=== PATIENT | male | born 1955 | race African-American/Black ===

== ENCOUNTER 2020-06-21 11:44 | Day surgery (SDC) | payer BC ==
[~2020-06-21] VITALS: Ht 167.6 cm; Wt 92.0 kg
--- NOTE | ~2020-06-21 | HEMODYNAMI ---
PATIENT:KATHRYN LOJA MEDICAL RECORD: [id number] : 57 LOCATION:DMarilynCAT ADMISSION DATE: 06/21/20 Generatedon:114:49 Patient name: KATHRYN LOJA Patient #: [id number] SSN: [id number] : 1955 Date of study: 06/21/2020 Page: Of Hemodynamic Procedure Report Patient Data Patient Demographics Procedure consent was obtained First Name: KATHRYN Gender: Male Last Name: PURVI : 1955 Middle Initial: YARITZA Age: 65 year(s) Patient #: [id number] Race: Black SSN: [id number] Additional ID: [id number] Contact details [address]: [address] [place] [address] State: [place] City: [place] Zip code: [address] Admission Admission Data Admission Date: 06/21/2020 Admission Time: 11:44 Arrival Date: 06/21/2020 Arrival Time: 0:00 Admit Source: Other Insurance Payor: Private health insurance [facility] #: [id number] Height (in.): 66 BSA: 2.01 (m2) Height (cm.): 167.64 BMI: 32.74 (kg/m2) Weight (lbs.): 202.83 Weight (kg.): 92 Lab Results Lab Result Date: 06/21/2020 Lab Result Time: 0:00 Biochemistry Name Units Result Min Max BUN mg/dl 18 --(---*)-- 7 18 Creatinine mg/dl 1 --(--*-)-- 0.6 1.3 eGFR ml/min 90 --(*---)-- 90 120 AM CBC Name Units Result Min Max Hematocrit % 43.6 --(*---)-- 42 54 Hemoglobin g/dl 14.5 --(*---)-- 13.5 17.5 Procedure Procedure Types Cath Procedure Diagnostic Procedure C LHC w/Coronaries FFR/IVUS FFR Initial Sedation Charges Moderate Sedation 10-24 minutes PCI Procedure Hemochron ACT Test Procedure Description Procedure Date Procedure Date: 06/21/2020 Procedure Start Time: 14:24 Procedure End Time: 14:45 Procedure Staff Name Function Abhijeet Tolliver MD Performing Physician Ning Farley RT Monitor Candi Campuzano RT Scrub Zachary Pabon RN Nurse Procedure Data Cath Procedure Fluoroscopy Diagnostic fluoroscopy Total fluoroscopy Time: 4.5 time: 4.5 min min Diagnostic fluoroscopy Total fluoroscopy dose: 683 dose: 683 mGy mGy Contrast Material Contrast Material Type Amount (ml) Isovue 300 87 Entry Location Entry Primary Successful Side Size Upsize Upsize Entry Closure Dia ccessful Closure Location (Fr) 1 (Fr) 2 (Fr) Remarks Device Remarks Radial Right 6 Fr Mechanical artery Short Compression Estimated blood loss: 5 ml Diagnostic catheters Device Type Used For End Catheter Placement DIAGNOSTIC Lilburn 110cm 5 Multi-vessel Fr catheter ([id number]) Angiography DIAGNOSTIC AR MOD 5Fr Right Coronary Catheter ([id number]) Angiography Procedure Complications No complications Procedure Medications Medication Administration Route Dosage Oxygen etCO2 Nasal cannula 2 l/min Lidocaine 2% added to field 20 Heparin Flush Bag added to field 2 bags (1000units/500ml NS) 0.9% NaCl I.V. 100 ml/hr Versed I.V. 1 mg Fentanyl I.V. 50 mcg Versed I.V. 1 mg Fentanyl I.V. 50 mcg Versed I.V. 1 mg Heparin Bolus I.V. 3000 units Versed I.V. 1 mg Radial Cocktail I.A. 1 syringe (Verapamil 2mg/Nitro 400mcg/Heparin 1500units) Hemodynamics Rest BSA: 2.01 (m2) HGB: 14.5 (g/dl) O2 Consumption: Estimated: 217.89 (ml/min) O2 Co nsumption indexed: Estimated:108.4 (ml/min/m) Heart Rate: 48 (bpm) Pressure Samples Time Site Value (mmHg) Purpose Heart Use Rate(bpm) 14:28 LV 80/-4,-4 Snapshot 61 14:29 AO 92/53(74) Pullback 59 14:29 LV 122/-2,3 Pullback 59 Gradients Valve Time Site 1 Site 2 Mean SEP/DFP Peak To Heart Use (mmHg) (sec/min) Peak Rate (mmHg) (bpm) Aortic 14:29 LV AO 25 18 30 59 122/-2,3 92/53(74) Calculations Valve P-P Mean Valve Index Valve Source Name Gradient Area Flow (cm2) Aortic 30 25 30 25 Snapshots Pre Cath Intra NCS Post Cath Vital Signs Time Heart Resp SPO2 etCO2 NIBP (mmHg) Rhythm Pain Sedation Rate (ipm) (%) (mmHg) Status Level (bpm) 14:09:43 49 12 100 34.5 202/97(166) SB 0 (11) 10(A) , No pain 14:14:15 48 15 100 39.8 172/90(150) SB 0 (11) 10(A) , No pain 14:19:54 48 10 98 0 162/88(132) NSR 0 (11) 10(A) , No pain 14:25:23 50 20 99 33 164/92(151) NSR 0 (11) 9(A) , No pain 14:29:39 58 14 96 0 128/76(103) NSR 0 (11) 9(A) , No pain 14:33:55 95 13 96 39 147/86(109) NSR 0 (11) 9(A) , No pain 14:38:20 69 11 100 39.8 143/81(125) NSR 0 (11) 10(A) , No pain 14:42:44 62 13 100 35.3 150/82(125) NSR 0 (11) 10(A) , No pain Medications Time Medication Route Dose Verified Delivered Reason Not es Effectiveness by by 14:12:45 Oxygen etCO2 2 l/min Abhijeet Sharma used for Nasal [facility] Pabon RN procedure cannula 14:12:53 Lidocaine 2% added 20ml Abhijeet Jha for local to vial [facility] anesthetic field MD ISRAEL 14:12:58 Heparin Flush added 2 bags Abhijeet Jha used for Bag to [facility] procedure (1000units/500ml field MD ISRAEL NS) 14:13:07 0.9% NaCl I.V. 100 Abhijeet Sharma Per physician ml/hr [facility] Pab[facility] RN, MD 14:13:15 Versed I.V. 1 mg Abhijeet Sharma for sedation [facility] Pab[facility] RN, MD 14:13:21 Fentanyl I.V. 50 mcg Abhijeet Sharma for sedation [facility] Pab[facility] RN, MD 14:16:37 Versed I.V. 1 mg Abhijeet Sharma for sedation [facility] Pabon RN, MD 14:16:41 Fentanyl I.V. 50 mcg Abhijeet Sharma for sedation [facility] Pabon RN, MD 14:26:04 Versed I.V. 1 mg Abhijeet Sharma for sedation [facility] Pabno RN, MD 14:26:15 Radial Cocktail I.A. 1 Abhijeet Jha for (Verapamil syringe [facility] Tolliver vasodilation 2mg/Nitro MD ISRAEL 400mcg/Heparin 1500units) 14:31:35 Versed I.V. 1 mg Abhijeet Sharma for sedation [facility] Pabon RN, MD 14:36:27 Heparin Bolus I.V. 3000 Abhijeet Sharma for van ified units [facility] Pabon RN anticoagulation with dr MD murillo Procedure Log Time Note 13:35:16 Informed consent obtained and on chart 13:35:34 Diagnostic Cath Status : Elective 13:36:14 Lab Result : eGFR AM 90 ml/min 13:36:14 Lab Result : Hemoglobin 14.5 g/dl 13:36:14 Lab Result : BUN 18 mg/dl 13:36:14 Lab Result : Creatinine 1 mg/dl 13:36:14 Lab Result : Hematocrit 43.6 % 13:36:17 Arrival Date: 06/21/2020 12:00:00 AM 13:36:18 Admit Source: Other 13:36:21 Patient Height : 66 inches 13:36:25 Patient Weight : 202.83 lbs 13:36:30 Insurance Payor : Private health insurance 13:48:29 Procedure Status Elective Heart Cath (OP). 13:48:31 Zachary Pabon RN sent for patient. Start room use. 13:48:32 Time tracking: Regular hours (M-F 7:00 - 5:00) 13:48:37 Plan of Care:Hemodynamics will remain stable., Cardiac rhythm will remain stable., Comfort level will be maintained., Respiratory function will remain adequate., Patient/ family verbilizes understanding of procedure., Procedure tolerated without complication., Recovers from procedure without complications.. 14:01:05 Patient received from Pre/Post Procedure Room to CCL 1 Alert and oriented. Tansferred to table in Supine position. 14:01:07 Warm blankets applied, and jenni hugger turned on for patient comfort. 14:01:07 Correct patient and procedure confirmed by team. 14:01:09 ECG and BP/O2 sat monitors applied to patient. 14:06:51 Vital chart was started 14:09:58 Baseline sample Acquired. 14:10:24 Rhythm: sinus bradycardia 14:10:26 Full Disclosure recording started 14:10:32 H&P Date Dictated: 06/21/2020 Within 30 days and on chart., H&P Addendum completed by physician on day of procedure. (MUST COMPLETE FOR ALL OUTPATIENTS). 14:10:33 Pre-procedure instructions explained to patient. 14:10:34 Pre-op teaching completed and patient verbalized understanding. 14:10:35 Family unavailable. 14:10:37 Patient NPO since Midnight. 14:10:40 Is the patient allergic to Iodine/contrast media? No. 14:10:42 Was the patient premedicated? No 14:10:43 Is patient on blood thinner?No 14:10:44 Patient diabetic? No. 14:10:46 Previous problem with sedation/anesthesia? No ? 14:10:49 Snore? Yes 14:10:50 Sleep apnea? No 14:10:51 Deviated septum? No 14:10:52 Opens mouth fully? Yes 14:10:52 Sticks out tongue? Yes 14:10:54 Airway obstruction? No ? 14:10:57 Dentures? No ? 14:11:00 Pre procedure: right dorsailis pedis pulse 2+ Normal; easily identifiable; not easily obliterated 14:11:04 Pre procedure: left dorsailis pedis pulse 2+ Normal; easily identifiable; not easily obliterated 14:11:07 Patient pain scale 0/10 ?. 14:11:13 IV patent on arrival in left forearm with 0.9% NaCl at [facility]. 14:11:17 Lab results completed and on chart. 14:12:11 Stress Test: yes; abnormal ANTEROAPICAL 14:12:15 Right Radial & Right Groin area was prepped with chlora-prep and draped in sterile fashion 14:12:15 Alarms reviewed by R. N. 14:12:16 Sharps counted by scrub and verified by R.N. 14:12:19 Physician arrived 14:12:20 --------ALL STOP TIME OUT------ 14:12:20 Final Timeout: patient, procedure, and site verified with staff and physician. All members of the team are in agreement. 14:12:24 Right Radial & Right Groin site verified by team. 14:12:45 Oxygen 2 l/min etCO2 Nasal cannula was administered by Zachary Pabno RN; used for procedure; Verbal order read back and verified. 14:12:50 Fire Safety Assessment: A--An alcohol-based skin anteseptic being used preoperatively., C--Open oxygen or nitrous oxide is being used., D--An ESU, laser, or fiber-optic light is being used. 14:12:53 Lidocaine 2% 20ml vial added to field was administered by Abhijeet Tolliver MD; for local anesthetic; Verbal order read back and verified. 14:12:55 Physical assessment completed. ASA score P 2 - A patient with mild systemic disease as per Abhijeet Tolliver MD. 14:12:58 Heparin Flush Bag (1000units/500ml NS) 2 bags added to field was administered by Abhijeet Tolliver MD; used for procedure; Verbal order read back and verified. 14:13:00 2) 60-89 Mildly reduced kidney function, and other findings (as for stage 1) point to kidney disease. 14:13:07 0.9% NaCl 100 ml/hr I.V. was administered by Zachary Pabon RN; Per physician; Verbal order read back and verified. 14:13:15 Versed 1 mg I.V. was administered by Zachary Pabon RN; for sedation; Verbal order read back and verified. 14:13:21 Fentanyl 50 mcg I.V. was administered by Zachary Pabon RN; for sedation; Verbal order read back and verified. 14:13:27 Maximum allowable contrast dose (3.7 X eGFR X 0.75)250 ml. 14:13:32 Sedation plan: IV Moderate Sedation Medication:Versed, Fentanyl 14:13:36 Use device set Radial Dx or PCI 14:13:37 ACIST Syringe (00793) opened to sterile field. 14:13:37 Medline Cath Pack ([id number]) opened to sterile field. 14:13:38 Bag Decanter () opened to sterile field. 14:13:38 ACIST Hand Control (33126) opened to sterile field. 14:13:38 ACIST Manifold (29481) opened to sterile field. 14:13:39 Tegaderm 4 x 4 (1626W) opened to sterile field. 14:13:39 MBrace Wrist Support (112219474) opened to sterile field. 14:13:42 EMERALD Guide Wire (316-249) opened to sterile field. 14:13:42 SHEATH 6FR RAIN (1893765) opened to sterile field. 14:16:37 Versed 1 mg I.V. was administered by Zachary Pabon RN; for sedation; Verbal order read back and verified. 14:16:41 Fentanyl 50 mcg I.V. was administered by Zachary Pabon RN; for sedation; Verbal order read back and verified. 14:24:34 Procedure started. 14:24:45 Local anesthetic to right radial artery with Lidocaine 2% by Abhijeet Tolliver MD.INITIAL ACCESS ONLY 14:25:14 A 6 Fr Short sheath was inserted into the Right Radial artery 14:26:04 Versed 1 mg I.V. was administered by Zachary Pabon RN; for sedation; Verbal order read back and verified. 14:26:15 Radial Cocktail (Verapamil 2mg/Nitro 400mcg/Heparin 1500units) 1 syringe I.A. was administered by Abhijeet Tolliver MD; for vasodilation; Verbal order read back and verified. 14:27:03 A DIAGNOSTIC Lilburn 110cm 5 Fr catheter (701544) was advanced over the wire and used for Multi-vessel Angiography. 14:28:43 LV hemodynamics recorded. 14:28:44 LV gram done using VASQUEZ 14:28:46 Injector settings: Ml/sec: 5, Volume: 15, 14:29:00 EF : 55 % 14:29:38 LCA angiography performed. 14:29:41 Injector settings: Ml/sec: 3, Volume: 6, 14:31:03 Catheter removed. 14:31:35 Versed 1 mg I.V. was administered by Zachary Pabon RN; for sedation; Verbal order read back and verified. 14:32:18 A DIAGNOSTIC AR MOD 5Fr Catheter (796646M) was advanced over the wire and used for Right Coronary Angiography. 14:33:41 RCA angiography performed. 14:33:50 Injector settings: Ml/sec: 3, Volume: 6, 14:35:03 Proceeding to intervention. 14:35:46 Wells Verrata Plus pressure wire (27530Q) opened to sterile field. 14:35:50 INFLATOR Merit Jw ([id number]) opened to sterile field. 14:36:06 Pressure wire advanced. 14:36:27 Heparin Bolus 3000 units I.V. was administered by Zachary Pabon RN; for anticoagulation; verified with dr murillo Verbal order read back and verified. 14:39:03 Baseline FFR 1. 14:41:39 pRCA lesion measured at 0.95 with IFR 14:41:53 Wire removed. 14:41:54 Guide catheter removed. 14:42:05 ZEPHYR REGULAR TR BAND (393566) opened to sterile field. 14:42:17 Sheath removed intact; hemostasis achieved with Mechanical Compression to the Right Radial artery. 14:42:19 Procedure ended.(Physican Out) 14:42:34 Fluoroscopy time 04.50 minutes. 14:42:40 Flurop Dose total: 683 14:42:40 Fluoroscopy dose: 683 mGy 14:42:46 Dose Area Product 11312 mGy/cm. 14:42:57 Contrast amount:Isovue 300 87ml. 14:42:59 Maximum allowable dose exceeded? No. 14:43:00 Sharps counted by scrub and verified by R.N. 14:43:04 [place] band inflated with 10cc of air. 14:43:06 Insertion/operative site no bleeding no hematoma. 14:43:10 Post right radial artery:stable 14:43:12 Post Procedure Pulses reassessed and unchanged 14:43:15 Post procedure rhythm: unchanged. 14:43:18 Estimated blood loss: 5 ml 14:43:20 Post procedure instruction explained to patient.Patient verbalizes understanding. 14:43:20 Patient needs reinforcement of post procedure teaching. 14:43:59 Procedure type changed to Cath procedure, Diagnostic procedure, LHC, [facility] w/Coronaries, FFR/IVUS, FFR Initial, Sedation Charges, Moderate Sedation 10-24 minutes, PCI procedure, Hemochron ACT Test 14:44:13 Procedure and supply charges have been captured, reviewed, submitted and are correct. 14:44:18 Procedure Complication : No complications 14:44:24 Vital chart was stopped 14:44:28 [facility] Findings: mild to moderate CAD (<70%) 14:44:35 Operative report dictated upon procedure completion. 14:44:35 See physician's report for complete and final results. 14:44:53 Report given to Pre/Post Procedure Room. 14:44:55 Patient transfered to Pre/Post Procedure Room with Stretcher. 14:45:12 Procedure ended. 14:45:12 Full Disclosure recording stopped 14:45:24 End room use (Document Last) 14:48:22 ACT drawn and resulted at out of range high seconds. (normal therapeutic range 180-240 seconds). Device Usage Item Name Manufacture Quantity Catalog Hospital Part Current Mini mal Lot# / Number Charge Number Stock Stock Serial# Code ACIST Acist 1 91563 331655 160553 [id number] 20 Syringe Medical (54885) Systems Inc Medline Medline 1 [id number] 728574 70059 049007 5 Cath Pack ([id number]) Bag Microtek 1 2001S 111973 18502 932225 5 Decanter Medical Inc. () ACIST Hand Acist 1 66832 294077 078429 672430 5 Control Medical (49551) Systems Inc ACIST Acist 1 95946 602868 440487 323419 5 Manifold Medical (06862) Systems Inc Tegaderm 4 3M 1 1626W 980000 545213 929114 5 x 4 (1626W) MBrace Advanced 1 140-0250-00 530786 58943 933847 5 Wrist Vascular Support Dynamics ([id number]) EMERALD Cardinal 1 502-455 978912 930497 868054 5 Guide Wire Health (502455) SHEATH 6FR Cardinal 1 0985793 722889 8028273 728874 5 [facility] (1189817) DIAGNOSTIC Terumo 1 40-5013 493344 082250 065185 5 Lilburn 110cm 5 Fr catheter (674998) DIAGNOSTIC Cardinal 1 786019D 020380 128519 461636 15 AR MOD 5Fr Health Catheter (939885H) Wells Wells 1 58086D 741343 [id number] 582575 5 Verrata Plus pressure wire (45814O) INFLATOR Merit 1 JD9764 483512 053775 187868 15 Mebelrama Medical BasixCompak (RG4938) ZEPHYR Cardinal 1 679361 387812 5004319 915638 5 REGULAR TR Health BAND (956311) Signature Audit [place] Stage Time Signature Unsigned Intra-Procedure 06/21/2020 Ning Farley 2:46:32 PM RT(R) Intra-Procedure 06/21/2020 Zachary Pabon RN 2:46:48 PM Intra-Procedure 06/21/2020 Abhijeet Young 2:49:19 PM Ben [place] [address] [address] [place] [address]
[~2020-06-21 11:44] MED LIST: AMBIEN10 MG PO; ASPIRIN EC81 MG PO; LIPITOR10 MG PO; LISINOPRIL10 MG PO; VITAMIN D325 MC1 PO; ZYRTEC10 MG PO
[2020-06-21 12:43] VITALS: BP 180/84; Ht 167.6 cm; Wt 92.0 kg
[2020-06-21 13:14] LABS: ALT (SGPT) 22 U/L (10-68); CALC OSMOLALITY 279 mosm/kg (275-300); CALCIUM 7.8 mg/dL (8.5-10.1); CHLORIDE - SERUM 106 mmol/L (98-107); CHOL - HDL RATIO 3.3 ratio (2.3-4.9); CHOLESTEROL, TOTAL 180 mg/dL (0-200); GLUCOSE 92 mg/dL (74-106); HDL CHOLESTEROL 55 mg/dL (32-96); LDL CHOLESTEROL 108 mg/dL (0-100); POTASSIUM - SERUM 3.5 mmol/L (3.5-5.1); SODIUM 139 mmol/L (136-145); TRIGLYCERIDE 89 mg/dL (30-200); UREA NITROGEN 18 mg/dL (7-18); eGFR NON AFRICAN AMERICAN 80 mL/min (90-120)
[2020-06-21 13:26] LABS: BASOPHILS 0 % (0-2); EOSINOPHILS 2.1 % (0-7); HEMATOCRIT 43.6 % (42.0-54.0); HEMOGLOBIN 14.5 g/dL (13.5-17.5); IMMATURE GRANULOCYTES 0.8 % (0-5); LYMPHOCYTE ABS# 2.52 10x3/uL (1.32-3.57); LYMPHOCYTES 38.7 % (15-50); MCH 29.2 pg (26.0-34.0); MCHC 33.3 g/dL (31.0-37.0); MCV 87.9 fL (80.0-100.0); MEAN PLATELET VOLUME 10.7 fL (7.4-10.4); MONOCYTES 10.3 % (2-11); NEUTROPHIL ABS# 3.14 10x3/uL (1.78-5.38); NEUTROPHILS 48.1 % (40-80); PLATELET COUNT 183 10x3/uL (130-400); RBC 4.96 10x6/uL (4.20-6.10); RDW 14.3 % (11.5-14.5); WBC 6.5 10x3/uL (4.8-10.8)
--- NOTE | 2020-06-21 15:00 | NUR ---
ARRIVES TO ROOM 3 , PLACED ON MONITORS SB WITH NO ECTOPY ALARMS ON, IV INFUSING PER ORDERS, SEE PROGRAM DEVELOPMENT MANAGER , CALL LIGHT WITH IN REACH, DENIES PAIN OR NEEDS AT PRESENT
--- NOTE | 2020-06-21 15:15 | NUR ---
RESTING QUIETLY, NO NEEDS AND DENIES PAIN, VSS, SB NO ECTOPY, RIGHT WRIST WITH ZBAND IN PLACE , NO OOZING OR BLEEDING NOTED, NO PALPABLE HEMATOMA, RADIAL PULSE PALPABLE WITH CAP REFILL WNL, IV INFUSING PER ORDER, CALL LIGHT WITH IN REACH.
--- NOTE | 2020-06-21 15:30 | NUR ---
EYES CLOSED AROUSES EASILY, DENIES PAIN OR NEEDS, VSS, SB , RIGHT WRIST WITH ZBAND IN PLACE, RADIAL PULSE PALPABLE, NO BLEEDING OR OOZING , CAP REFILL WNL, IV INFUSING PER ORDERS, PT PLACED IN SEMI FOWLERS POSITION, URINAL GIVEN VOIDS 200CC CLEAR YELLOW URINE, CALL LIGHT WITHIN REACH
--- NOTE | 2020-06-21 15:38 | OP ---
PATIENT NAME: KATHRYN LOJA MEDICAL RECORD: [id number] :57 LOCATION:D.CAT ADMISSION DATE: SURGEON: MARCIAL HOLDER MD DATE OF OPERATION: 06/21/2020 PROCEDURE: Left heart catheterization, selective coronary angiography, right radial approach, IFR wire to the right coronary. CATHETERS: A 5-Romansh sheath, 5/4 left and right Harley, 5/4 pig. The procedure was well tolerated. The patient returned to moore. Sheath removed. TR band was placed. FINDINGS: Left ventriculography in 30-degree VASQUEZ view: Normal wall motion, normal systolic function. CORONARY ANATOMY: Left main: Left main is free of disease. LAD: LAD is free of disease in diagonal system. Circumflex: Circumflex is free of disease as in the marginal system. Right coronary artery: Dominant artery, has a questionable stenosis in the mid portion; however, IFR wire was normal at 0.95. IMPRESSION: No significant stenosis via angiography and via IFR wire. LV function is normal. Medical management, risk factor modification. TRANSINT:[id number] Voice Confirmation ID: [id number] DOCUMENT ID: [id number] MARCIAL HOLDER MD at 1538 CC: [id number] DICTATION DATE: 06/21/20 1454 SYNTHETIC CHEMIST: 06/21/20 1513 REG [facility] [address] [place] [address]
--- NOTE | 2020-06-21 15:45 | NUR ---
NO NEEDS OR PAIN , RIGHT WRIST STABLE ZBAND IN PLACE, RADIAL PULSE PALPABLE, NO OOZING OR BLEEDING , MOVES ALL DIGITS, CAP REFILL WNL, VSS, SB, IV INFUSING PER ORDERS, CALL LIGHT WITH IN REACH
--- NOTE | 2020-06-21 16:00 | NUR ---
PT RESTING QUIETLY, 2CC AIR RELEASED FROM RIGHT ZBAND, NO OOZING OR BLEEDING NOTED, NO PALPABLE HEMATOMA, RADIAL PULSE PALPABLE , CAP REFILL WNL MOVES ALL DIGITS, IV INFUSING PER ORDERS, CALL LIGHT WITH IN REACH
--- NOTE | 2020-06-21 16:20 | NUR ---
4CC AIR RELEASED FROM ZBAND ON RIGHT WRIST, NO OOZING OR BLEEDING NO PALPABLE HEMATOMA, RADIAL PULSE PALPABLE, MOVES ALL DIGITS, CAP REFILL WNL, PT DENIES PAIN OR NEEDS, VSS, SB NO ECTOPY, IV INFUSING PER ORDERS, CALL LIGHT WITHIN REACH
--- NOTE | 2020-06-21 16:45 | NUR ---
DISCHARGE INSTRUCTIONS REVIEWED WITH PT , IV REMOVED PER ORDERS CATHETER INTACT BANDAID APPLIED, ALL AIR RELEASED FROM ZBAND RIGHT WRIST / BAND REMAINS INPLACE, RADIAL PULSE PALPABLE, NO OOZING OR BLEEDING NOTED , OPSITE APPLIED TO AREA, NO PALPABLE HEMATOMA, CAP REFILL WNL MOVES ALL DIGITS, DENIES PAIN OR NEEDS, PT DRESSED AND AMBULATES TO BATHROOM VOIDS WITHOUT DIFFICULTY. VSS,SB
--- NOTE | 2020-06-21 17:00 | NUR ---
DISCHARGED PER ORDERS, INSTRUCTIONS REVIEWED PRIOR TO LEAVING QUESTIONS AND CONCERNS ADDRESSED, PT VERBALIZED UNDERSTANDING, PT DENIES PAIN OR NEEDS, RIGHT WRIST WITH OPSITE C/D/I . TAKEN TO PRIVATE VEHICLE VIA WHEELCHAIR ,INSTRUCTIONS REVIEWED WITH CAREGIVER SABRINA.
== END 2020-06-21 17:00 | disposition home or self-care (01) ==
LOC: D.CATH 11:44 → EDSTATUS 14:00 → D.CATH 17:00
PROVIDERS: ATTEND Internal Medicine Interventional Cardiology
DX: I20.9 Angina pectoris, unspecified (principal); I10 Essential (primary) hypertension; R00.1 Bradycardia, unspecified; R07.9 Chest pain, unspecified